=== PATIENT | male | born 1985 | race Caucasian/White ===

== ENCOUNTER 2024-07-19 15:11 | Outpatient (CLI) | payer OTHER ==
--- NOTE | 2024-07-20 08:33 | XRAY Report ---
PROCEDURE: Knee 4+V BL INDICATIONS: BILATERAL KNEE PAIN TECHNIQUE: AP, lateral, sunrise views of the knees COMPARISON: None. FINDINGS: Right knee: No acute fracture or dislocation. The joint spaces are preserved. Trace suprapatellar rec ess effusion. Left knee: No acute fracture or dislocation. The joint spaces are preserved. Trace suprapatellar rece ss effusion. Patellar tendon enthesopathy at the tibial insertion. IMPRESSION: No acute fracture or dislocation of the knees. Reviewed by: Davis Anne MD on 07/20/2024 8:32 AM PDT Approved by: Davis Anne MD on 07/20/2024 8:32 AM PDT Station ID: [id number]
== END 2024-07-19 15:12 | disposition home or self-care (01) ==
LOC: DI.N 15:11
PROVIDERS: ATTEND Orthopaedic Surgery
DX: M25.561 Pain in right knee (principal); M25.562 Pain in left knee